=== PATIENT | female | born 1975 | race Caucasian/White ===

== ENCOUNTER 2025-04-14 22:56 | Emergency (ER) | payer OTHER, SELFPAY ==
[2025-04-14 23:01] VITALS: BP 176/117; PULSE 92; RESP 20; TEMP 35.8; O2SAT 98; BMI 39.0
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
--- NOTE | 2025-04-14 23:15 | CRLHL7_ITS ---
For Patients: As a result of the Century Cures Act, medical imaging exams and procedure reports are released immediately into your electronic medical record. You may view this report before your referring provider. If you have questions, please contact your health care provider. Indication: Fall Technique: Noncontrast CT through the head with multiplanar reformats Comparison: CT head performed 08/02/2013 Findings: Brain: No acute hemorrhage. No acute infarct. No significant mass effect or midline shift. No gross evidence of a mass lesion or cerebral edema. Ventricles: No acute abnormality appreciated. Orbits, sinuses, mastoids: No acute abnormality appreciated. Calvarium and soft tissues: No acute abnormality appreciated. Impression: No acute abnormality appreciated. Please note that all CT scans at this facility use dose modulation, iterative reconstruction, and/or weight-based dosing when appropriate to reduce radiation dose to as low as reasonably achievable. Dictated by Missael Terry MD @ 04/14/2025 11:43:40 PM (Electronically Signed)
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
[2025-04-14] MEDS: KETOROLAC 30 MG/ML inj IM (23:35)
[2025-04-14] MEDS: LORazepam 1 MG TABLET PO (23:35)
[2025-04-15 00:01] VITALS: BP 158/86; PULSE 79; RESP 16; TEMP 36.4; O2SAT 94
--- OUTSIDE RECORDS SUMMARY | 2025-04-16 17:18 | XMS_ITS | Clinical Summary ---
Author Organization [facility] Address [address] [place] [id number] Care Team Providers Care Sports Intern Name Role Phone DentAma DO Primary Care Provider Allergies Active Allergy Reactions Criticality Noted Date Comments Hydrocodone-Acetaminophen 02/24/2007 Medications cholecalciferol (VITAMIN D3) 5,000 unit capsuleIndication s:Vitamin D deficiency TAKE ONE CAPSULE BY MOUTH ONCE DAILY 90 capsule 2 8 Active medication order composerIndicatio ns:Closed intra-articular fracture of distal tibia, left, initial encounter,Sprain of anterior talofibular ligament of left ankle, initial encounter Sana Subramanian ES, Std. Left, medium. Length of use: 99 months. Ref. [phone] 1 unit 9 Active blood-glucose meterIndications: Type 2 diabetes mellitus without complication, without long-term current use of insulin (HC) As directed. Dispense meter, test strips, lancets covered by pt ins. E11.9 NIDDM type II - Test 1 time/day 1 Each 2 Active TRUEplus Lancets 30 gauge miscIndications:T ype 2 diabetes mellitus without complication, without long-term current use of insulin (HC) USE TO TEST ONCE DAILY. 100 Each 3 4 Active metFORMIN (GLUCOPHAGE XR) 500 mg Extended-Release tabletIndications :Type 2 diabetes mellitus with hyperglycemia, without long-term current use of insulin (HC) Take 2 Tablets (1,000 mg) by mouth two times daily with meals. 360 Tablet 3 5 Active blood sugar diagnostic (Blood Glucose Test) stripIndications: Type 2 diabetes mellitus with hyperglycemia, without long-term current use of insulin (HC) Test 1 time per day. 200 Each 5 Active naproxen (NAPROSYN) 500 mg tabletIndications :Sacroiliac inflammation Take 1 Tablet (500 mg) by mouth two times daily with meals. 60 Tablet 11 5 Active empagliflozin (JARDIANCE) 10 mg tabletIndications :Type 2 diabetes mellitus with hyperglycemia, without long-term current use of insulin (HC) Take 1 Tablet (10 mg) by mouth once daily. 90 Tablet 2 5 Active glipiZIDE (GLUCOTROL) 5 mg tabletIndications :Type 2 diabetes mellitus with hyperglycemia, without long-term current use of insulin (HC) Take 1 Tablet (5 mg) by mouth two times daily before meals. Take 30 minutes before the meal. 180 Tablet 2 5 Active triamcinolone 0.1 % ointmentIndicatio ns:Atopic dermatitis, unspecified type Apply thin layer to affected areas on body 1-2 times a day as needed. Do not use on face/neck/ear s/underarms/g roin. Do not use more than 3 weeks at a time. 80 g 3 5 Active Active Problems Problem Noted Date Diagnosed Date Cervical high risk HPV (human papillomavirus) te st positive 07/07/2018 Overview (01/25/2025): 06/2018 NIL/HPV+, HPV 16/18 negative 08/2019 NIL/HPV+ 10/2019 [place]: No biopsy 01/2021 NIL/HPV negative 01/2022 NIL/HPV negative 12/2024 NIL/HPV negative. Plan: Pap/HPV due 12/2029. PCOS (polycystic ovarian syndrome) 05/19/2012 Adjustment disorder with mixed anxiety and depre ssed mood 07/30/2010 Sacroiliac inflammation 09/11/2008 Unspecified symptom associated with female genit al organs 12/15/2007 Intramural leiomyoma of uterus 12/15/2007 Other and unspecified ovarian cyst 12/15/2007 Backache, unspecified 03/10/2007 Immunizations Immunization Administration Dates Next Due HPV 9 (Gardasil 9) 08/02/2020,01/30/2020, 019 Influenza, IIV3 (Age >=3 years) 09/08/2013 Influenza, IIV4 09/20/2014 Td (Age >=7 Years) 06/30/2006 Tdap 08/11/2016 Family History Medical History Relation Name Comments Heart Disease Father 1961 Diabetes Mother Hypertension Mother Osteoporosis Mother Relation Name Status Comments Father Mother Social History Tobacco Use Types Packs/Day Years Used Date Smoking Tobacco: Never Smokeless Tobacco: Never Tobacco Cessation:Counseling Given: Yes Alcohol Use Standard Drinks/Week Comments No 0 (1 standard drink = 0.6 oz pur e alcohol) PHQ-2 Answer Date Recorded PHQ-2 TOTAL SCORE 4 01/11/2025 Social Connections Answer Date Recorded Do you often feel lonely or isolated from those around you? 0 03/02/2024 Financial Resource Strain Answer Date R ecorded Difficulty of Paying Living Expenses 3 03/02/2024 Difficulty of Paying Living Expenses Not on file 03/02/2024 Food Insecurity Answer Date Recorded Do you worry your food will run out before you are able to buy more? 1 03/02/2024 Transportation Needs Answer Date Record ed Does lack of transportation keep you from medica l appointments? 1 03/02/2024 Does lack of transportation keep you from work, meetings or getting things that you need? 1 03/02/2024 Housing Stability Answer Date Recorded What is your housing situation today? 1 03/02/2024 Interpersonal Safety Answer Date Record ed Are you being hit, kicked, p ushed or yelled at (see row info)? No 08/09/2024 Interpersonal Safety Abuse 12 - 18 Not on file 08/09/2024 Interpersonal Safety Ambulatory Vulnerability No t on file 08/09/2024 Utilities Answer Date Recorded Do you have trouble paying f or utilities (for example, heat, electricity, water, phone)? 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 Not on file Not on file Not on file Obstetrics History Para Term AB IAB SAB Ectopic Multiple Livin g Live Births 2 2 0 0 0 0 0 0 1 Date Outcome GA Total Labor Labor/2nd/3rd Weight Sex Type Anes PTL Vivian A1 A5 Name Clin Para 002 Para C-Sect ion Comments:[place] Last Filed Vital Signs Vital Sign Reading Time Taken Comments Blood Pressure 129/86 01/11/2025 9:45 AM CHISEL GRINDER Pulse 90 01/11/2025 9:45 AM CHISEL GRINDER Temperature 36.6 C (97.9 F) 08/09/2024 1:37 PM CDT Respiratory Rate 16 08/09/2024 1:37 PM CDT Oxygen Saturation 96% 01/11/2025 9:45 AM CHISEL GRINDER Inhaled Oxygen Concentration - - Weight 93.4 kg (206 lb) 01/11/2025 9:45 AM CHISEL GRINDER Height 154.9 cm (5' 1) 01/11/2025 9:45 AM CHISEL GRINDER Body Mass Index 38.92 01/11/2025 9:45 AM CHISEL GRINDER Plan of Treatment Upcoming Encounters Date Type Department Care Team (Late st Contact Info) Description 05/22/2025 9:00 AM CDT Office Visit [facility] [address] [place] [address] Ama Canales DO [address] [place] [address] 07/13/2025 9:30 AM CDT Office Visit [facility] [address] [facility] [address] [place], [place] [id number] [place] [address] [place] [address] [place] [address] Health Maintenance Due Date Last Done Comments Hepatitis B series for Diabe shaun (1 of 3 - 19+ 3-dose series) 1994 Pneumococcal series for age 50+ (1 of 2 - PCV) 1994 Colonoscopy through age 75 02/16/2020 Mammogram for age 45-75 02/16/2020 COVID-19 vaccine series (1 - 2023- season) 2024 Zoster (shingles) series for age 50+ (1 of 2) 2025 Influenza Vaccine (Season Ended) 2025 09/20/20 14, 09/08/2013 BMI (ht and wt on same day) for age 18+ 01/11/2026 01/11/2025, 01/04/2024, 08/14/2022, Additional history exists Depression screening for age 12+ 01/11/2026 01/11/20 25 Tetanus booster 08/11/2026 08/11/2016, 06/30/2006 Lipids for age 45-75 01/11/2030 01/11/2025, 01/04/2024, 01/04/2024, Additional history exists Pap test for age 21-65 01/11/2030 , 01/11/2025, 02/26/2022, Additional history exists Tdap Completed 08/11/2016 HIV for age 15-65 Completed 08/30/2019, , 08/13/2016, Additional history exists Hepatitis C screening for ag e 18-79 Completed 08/30/2019, 07/24/2017, 12/25/2015, Additional history exists Procedures Procedure Name Priority Date/Time Associated Diagnosis Comments HUMAN SERVICES PROGRAM SPECIALIST THIN PREP PAP SCREEN IMAGED Routine 01/11/2025 11:00 AM CHISEL GRINDER Pap smear for cervical cancer screening LIPID PANEL W REFLEX MEASURED LDL Routine 01/11/2025 9:31 AM CHISEL GRINDER Mixed hyperlipidemia ANTI HIV 1/2 Routine 08/30/2019 4:01 PM CDT Other problems related to lifestyle ANTI HCV Routine 08/30/2019 4:01 PM CDT Other problems related to lifestyle from Last 3 Months or Most Recently Relevant to Health Maintenance Results * HUMAN SERVICES PROGRAM SPECIALIST THIN PREP PAP SCREEN IMAGED (01/11/2025 11:00 AM CHISEL GRINDER) Case Report Gynecologic Cytology Report Case: [id number] Authorizing Provider: Ama Canales DO Collected: 01/11/2025 1100 Ordering Location: [facility] Received: 01/11/2025 1100 Clinic First Screen: Cherry Bergeron Rescreen: [place]acc[place], Minie Specimen: HUMAN SERVICES PROGRAM SPECIALIST ThinPrep Vial Screening, Cervical 01/24/2025 7:16 PM CHISEL GRINDER [facility] INTERPRETATION/ RESULT NEGATIVE FOR INTRAEPITHELIAL LESION OR MALIGNANCY (NIL) (none) 01/24/2025 7:16 PM CHISEL GRINDER [facility] at [address] CHISEL GRINDER SPECIMEN ADEQUACY Satisfactory for evaluation Endocervical cells cannot be evaluated due to severe atrophy 01/24/2025 7:16 PM CHISEL GRINDER [facility] HPV REQUEST HPV and PAP 01/24/2025 7:16 PM CHISEL GRINDER [facility] Date of LMP NA 01/24/2025 7:16 PM CHISEL GRINDER [facility] Last Pap Date 02/26/22 01/24/2025 7:16 PM CHISEL GRINDER [facility] Last Pap Result NIL 7:16 PM CHISEL GRINDER [facility] Abnormal Pap or [place] Bx in last 5 years No 01/24/2025 7:16 PM CHISEL GRINDER [facility] Menstrual Status Postmenopausal 01/24/2025 7:16 PM CHISEL GRINDER [facility] [place] Bx Done Today No 01/24/2025 7:16 PM CHISEL GRINDER [facility] Additional Information None given 01/24/2025 7:16 PM CHISEL GRINDER [facility] Comment: Cytology is screened at [facility] Central Laboratory - [address], [place] [address] and [facility] - [address] [facility] [place] [address] and [facility] - [address] [place] [address] Interpreted at [facility] Laboratory - [address], [place] [address] Automated Review Successful 01/24/2025 7:16 PM CHISEL GRINDER [facility] Comment:Specimen processed s uccessfully by automated deck molder device, ThinPrep Imaging System, [employer] ANCILLARY TESTING HUMAN SERVICES PROGRAM SPECIALIST HPV Ordered, Please see separate report 01/24/2025 7:16 PM CHISEL GRINDER [facility] Note The pap test is a screening technique, not a diagnostic procedure. It is used primarily to screen for squamous cancers and precursor lesions. Published studies have shown that it is subject to both false negative and false positive results. The pap test should not be used as the sole means to diagnose or exclude pre-malignant and malignant lesions. 01/24/2025 7:16 PM CHISEL GRINDER [email or web address]AL LABORAT[facility] Other (Cervical) Non-Blood / Unknown 01/11/2025 11:00 AM CHISEL GRINDER 01/11/2025 11:00 AM CHISEL GRINDER us Ama Canales DO PATHOLOGY/CYTOLOGY Final Re sult [email or web address]AL LABORAT[facility] [address] [place] [address], * (ABNORMAL) LIPID PANEL W REFLEX MEASURED LDL (01/11/2025 9:31 AM CHISEL GRINDER) CHOLESTEROL, TOTAL 245(H) <200 mg/dL [facility] HDL CHOLESTEROL 50 > OR = 50 mg/dL [facility] TRIGLYCERIDES 262(H) <150 mg/dL [facility] Comment: If a non-fasting specimen was collected, consider repeat triglyceride testing on a fasting specimen if clinically indicated. Bourne et al. J. of Clin. Lipidol. 2015;9:129-169. LDL-CHOLESTEROL 152(H) mg/dL (calc) [facility] Comment: Reference range: <100 Desirable range <100 mg/dL for primary prevention; <70 mg/dL for patients with CHD or diabetic patients with > or = 2 CHD risk factors. LDL-C is now calculated using the Joel-Jaquelin calculation, which is a validated novel method providing better accuracy than the Friedewald equation in the estimation of LDL-C. Joel JAY et al. GISSELL. 2013;310(19): 2124-8954 (http://education.Fundamo (Proprietary)/faq/DOO561) CHOL/HDLC RATIO 4.9 <5.0 (calc) [facility] NON HDL CHOLESTEROL 195(H) <130 mg/dL (calc) [facility] Comment: For patients with diabetes plus 1 major ASCVD risk factor, treating to a non-HDL-C goal of <100 mg/dL (LDL-C of <70 mg/dL) is considered a therapeutic option. Blood BLOOD SPECIMEN / Unknown 01/11/2025 9:31 AM CHISEL GRINDER 01/11/2025 9:31 AM CHISEL GRINDER Ama Carlotta Detert DO CHEMISTRY Final Resul t Performing Organization Address City/[facility] Co de Phone Number [facility] [address] [place] [address], [facility] [address] [place] [address] * ANTI HCV (08/30/2019 4:01 PM CDT) Pathologist [facility] [place] HEPATITIS C ANTIBODY Non-React ruth Non-React ruth 08/30/2019 9:56 PM CDT [facility] Comment:Antibodies to HCV no t detected; does not exclude the possibility of exposure to HCV. Blood BLOOD SPECIMEN / Unknown Butterfly / Unknown 08/30/2019 4:01 PM CDT 08/30/2019 4:01 PM CDT Nadia TARANGO SEND OUTS Final R esult Performing Organization Address [facility] de Phone Number [facility] [address] [place] [address], [place] * ANTI HIV 1/2 (08/30/2019 4:01 PM CDT) Pathologist [facility] [place] HIV-1/HIV-2 ANTIBODY Non-Reacti ve Non-Reacti ve 08/30/2019 10:31 PM CDT [facility] Comment:HIV-1 p24 and HIV-1/ HIV-2 Ab not detected. Blood BLOOD SPECIMEN / Unknown Butterfly / Unknown 08/30/2019 4:01 PM CDT 08/30/2019 4:01 PM CDT Nadia TARANGO SEND OUTS Final R esult Performing Organization Address City/[facility] Co de Phone Number [facility] [address] [place] [address], from Last 3 Months or Most Recently Relevant to Health Maintenance Insurance [facility] ATTN: [place] [address] Advance Directives * Full Code (Latest Code Status on File) Date Activated Date Inactivated Comments 12/15/2007 11:19 AM 12/15/2007 8:06 PM Care Teams Sports Intern Relationship Specialty Start Date End Date Ama Canales DO [address] [place] [address] PCP - General Family Practice 12/24/23
== END 2025-04-15 00:15 | disposition home or self-care (01) ==
LOC: ED 04-15 00:05
PROVIDERS: Emergency Provider Emergency Medicine; PCP Family Medicine
DX: M54.2 Cervicalgia (principal); V43.62XA Car passenger injured in collision with other type car in traffic accident, initial encounter
CPT/HCPCS: 70450; 72125; 96372; 99284; A9270; J1885

== ENCOUNTER 2025-05-25 15:00 | Outpatient (RCR) | payer SELFPAY | END 2025-07-27 14:45 | disposition home or self-care (01) | PROVIDERS: PCP Family Medicine; Visit Provider Student in an Organized Health Care Education/Training Program | DX: S16.1XXD Strain of muscle, fascia and tendon at neck level, subsequent encounter (principal); M54.2 Cervicalgia; Z51.89 Encounter for other specified aftercare | CPT/HCPCS: 97110; 97140; 97161 ==